=== PATIENT | male | born 1990 | race Caucasian/White ===

== ENCOUNTER → 2017-03-20 | Outpatient (CLI) | payer OTHER ==
[~2017-03-20] MED LIST: METHACHOLINE KIT (J7674) INH ONE
--- NOTE | 2017-03-20 08:28 | PFTRPT ---
Tech: Cristhian GIPSON RRT Age: 27 Sex: Male Race: Height: 71.50 Inches Weight: 188.00 Lbs BSA: 2.06 Diagnosis: R06.02 METHACHOLINE CHALLENGE REPORT: ORDERING PROVIDER: HOANG Rush DATE OF SERVICE: 03/20/17 INTERPRETATION: The study was of excellent technical quality. Under protocol, methacholine was administered. Even after a maximal dose of 25 mg (188.875 CDUs) of methacholine , no provocation dose was ever achieved. Flow rates did return to baseline post bronchodilator administration. IMPRESSION: Negative methacholine challenge study. MTDD
== END ==
LOC: M CARPUL 07:31
PROVIDERS: ATTEND Nurse Practitioner Adult Health
DX: R06.02 Shortness of breath (principal)
CPT/HCPCS: 94070; J7674